=== PATIENT | male | born 1965 | race Caucasian/White ===

== ENCOUNTER 2019-04-09 08:37 | Emergency (ER) | payer OTHER ==
--- OUTSIDE RECORDS SUMMARY | 2019-04-09 08:43 | XMS REPORT | Continuity of Care Document ---
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 [phone] Medicine Problems Active Problems Provider Date Lumbosacral spondylosis without myelopathy Sena Soria MD Onset: Social History Type Date Description Comments Sex Unknown ETOH Use Occasionally consumes alcohol Tobacco Use Start: Unknown Patient has never smoked Recreational Drug Use Denies Drug Use Smoking Status Reviewed: 11/27/17 Patient has never smoked Exercise Type/Frequency Does not exercise Allergies, Adverse Reactions, Alerts Description No Known Drug Allergies Medications Description No Active Medications Immunizations Description No Information Available Vital Signs Date Vital Result Comment 11/27/2017 12:49pm Height 71 inches 5'11" Weight 240.00 lb BP Systolic Sitting 110 mmHg BP Diastolic Sitting 70 mmHg Pain Level 2 BMI (Body Mass Index) 33.5 kg/m2 09/29/2017 9:09am Height 71 inches 5'11" Weight 240.00 lb Heart Rate 62 /min BP Systolic Sitting 132 mmHg BP Diastolic Sitting 80 mmHg Pain Level 1 BMI (Body Mass Index) 33.5 kg/m2 Results Description No Information Available Procedures Description No Information Available Medical Devices Description No Information Available Encounters Description No Information Available Assessments Description No Information Available Plan of Treatment Future Appointment(s):03/12/2019 9:00 am - [place] [facility] at [facility]03/12/2019 9:30 am - Shan Irizarry M.D. at [facility]11/27/2017 - Sena Soria, MDM47.26 Other spondylosis with radiculopathy, lumbar regionFollow up:RV prnM51.16 Intervertebral disc disorders w radiculopathy, lumbar region Functional Status Description No Information Available Mental Status Description No Information Available Referrals Description No Information Available
--- OUTSIDE RECORDS SUMMARY | 2019-04-09 08:43 | XMS REPORT | Continuity of Care Document ---
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 Suprep Bowel Prep Kit as directed 1units Argentina 03/22/2019 MD Perez 17.5-3.13-1.6GM/177ML Solution Levothyroxine Sodium 1 by mouth every 90tabs Unknown 05/09/2018 day 100mcg Tablets Immunizations Description No Information Available Vital Signs Date Vital Result Comment 03/22/2019 2:19pm Height 71 inches 5'11" Weight 253.00 lb BP Systolic 133 mmHg BP Diastolic 80 mmHg Heart Rate 75 /min BMI (Body Mass Index) 35.3 kg/m2 Results Test Date Facility Test Result H/L Range Note Lab Results 03/04/2019 N2N/CCD Import TSH 2.00 mIU/L 0.50-6.00 PSA 0.7 ng/mL 0.0-4.0 Procedures Description No Information Available Medical Devices Description No Information Available Encounters Description No Information Available Assessments Date Code Description Provider 03/22/2019 K21.9 Gastro-esophageal reflux disease without Argentina Santos MD esophagitis 03/22/2019 R14.2 Eructation Argentina Todd MD 03/22/2019 R14.0 Abdominal distension (gaseous) Argentina Todd MD 03/22/2019 R19.7 Diarrhea, unspecified Argentina Todd MD 03/22/2019 Z12.11 Encounter for screening for malignant Argentina Todd MD neoplasm of colon Plan of Treatment Future Appointment(s):05/09/2019 11:15 am - Argentina Todd MD at [facility]03/22/2019 - Argentina Todd MDK21.9 Gastro-esophageal reflux disease without zebocwdyppvZ51.2 DvohclmrxaS28.0 Abdominal distension ( gaseous)R19.7 Diarrhea, ydmlyrrnzdpV41.11 Encounter for screening for malignant neoplasm of colon Functional Status Description No Information Available Mental Status Description No Information Available Referrals Description No Information Available
--- NOTE | 2019-04-09 09:49 | UC ---
Shoulder Pain HPI - HPI Summary HPI Summary: 53 yo male s/p fall at work yesterday injuring left shoulder immediate pain and inability to abd arm he is right handed took aleve no pain at rest severe pain with attempts to abduct - History of Current Complaint Chief Complaint: UCUpperExtremity Stated Complaint: SHOULDER INJURY Time Seen by Provider: 04/09/19 09:44 Hx Obtained From: Patient Onset/Duration: Sudden Onset, Lasting Hours Timing: Constant Severity Initially: Severe Severity Currently: None - at rest Pain Intensity: 10 - with movement Pain Scale Used: 0-10 Numeric Character: Sharp Aggravating Factor(s): Movement, External Rotation, Abduction Alleviating Factor(s): Rest Associated Signs And Symptoms: Positive: Negative Related History: Occupational Injury, Dominant Hand Right Torso: 1 - pain here - Allergies/Home Medications Allergies/Adverse Reactions: Allergies Allergy/AdvReac Type Severity Reaction Status Date / Time No Known Allergies Allergy Verified 04/09/19 08:49 Home Medications: Home Medications Levothyroxine TAB* [Synthroid 100 MCG TAB*] 1 tab PO DAILY 04/09/19 [History Confirmed 04/09/19] Omeprazole 1 cap PO DAILY 04/09/19 [History Confirmed 04/09/19] PMH/Surg Hx/FS Hx/Imm Hx Previously Healthy: Yes - Surgical History Surgical History: Yes Surgery Procedure, Year, and Place: carpal tunnel release right wrist - Family History Known Family History: Positive: Cardiac Disease, Hypertension - Social History Alcohol Use: Daily Alcohol Amount: 1 beer Substance Use Type: None Smoking Status (MU): Never Smoked Tobacco Review of Systems All Other Systems Reviewed And Are Negative: Yes Constitutional: Positive: Negative Skin: Positive: Negative Eyes: Positive: Negative ENT: Positive: Negative Respiratory: Positive: Negative Cardiovascular: Positive: Negative Gastrointestinal: Positive: Negative Genitourinary: Positive: Negative Motor: Positive: Negative Neurovascular: Positive: Negative Musculoskeletal: Positive: Arthralgia - left shoulder Neurological: Positive: Negative Psychological: Positive: Negative Physical Exam Triage Information Reviewed: Yes Appearance: Well-Appearing, No Pain Distress, Well-Nourished Vital Signs: Initial Vital Signs Temp 97.7 F 04/09/19 08:42 Pulse 58 04/09/19 08:42 Resp 18 04/09/19 08:42 BP 159/131 04/09/19 08:42 Pulse Ox 100 04/09/19 08:42 Vital Signs Reviewed: Yes Eyes: Positive: Conjunctiva Clear ENT: Positive: Hearing grossly normal. Negative: Nasal congestion, Nasal drainage, Trismus, Muffled voice, Hoarse voice Dental Exam: Normal Neck: Positive: Supple, Nontender Respiratory: Positive: Lungs clear, Normal breath sounds, No respiratory distress, No accessory muscle use Cardiovascular: Positive: RRR Musculoskeletal: Positive: ROM Limited @ - left shoulder - unable to abduct, pain with ext rotation, n/v intact Neurological: Positive: Alert Psychological Exam: Normal Skin Exam: Normal Procedures - Sedation Patient Received Moderate/Deep Sedation with Procedure: No Diagnostics - Radiology No standard instances Radiology Interpretation Completed By: Radiologist Summary of Radiographic Findings: no fx/mild DJD Shoulder Course/Dx - Differential Dx/Diagnosis Provider Diagnosis: Torn rotator cuff, Injury of left shoulder, Elevated BP without diagnosis of hypertension Discharge ED - Sign-Out/Discharge Documenting (check all that apply): Patient Departure All imaging exams completed and their final reports reviewed: Yes - Discharge Plan Condition: Stable Disposition: HOME Patient Education Materials: Rotator Cuff Injury (ED), How to Use a Sling (ED) Forms: *Work Release Referrals: Matt Dolan MD [Medical Doctor] - As Soon As Possible Additional Instructions: sling ice aleve I suspect a rotator cuff tear BP recheck with your MD in 1-2 mos - Billing Disposition and Condition Condition: STABLE Disposition: Home
[2019-04-09 09:53] VITALS: BP 142/93
== END 2019-04-09 10:38 | disposition home or self-care (01) ==
LOC: UCEAST 08:37
DX: S43.422A Sprain of left rotator cuff capsule, initial encounter (principal); W19.XXXA Unspecified fall, initial encounter; Y92.89 Other specified places as the place of occurrence of the external cause; R03.0 Elevated blood-pressure reading, without diagnosis of hypertension
CPT/HCPCS: 99212; G0463

== ENCOUNTER 2019-07-31 09:44 | Day surgery (SDC) | payer OTHER ==
[~2019-07-31 09:44] MED LIST: Atracurium* 10 MG/ML 10 ML VIAL ONE; Buffered Lidocaine 1% SYRIN* 1 ML/SYRINGE INTRADERM ONE; Dexamethasone IV* 4 MG/ML 1 ML (4 MG) IV SLOW PU ONE; Lactated Ringers 1000 ML Bag* 1,000 ML IV SCH; Lidocaine 2% PF * 5 ML VIAL ONE; Midazolam* 1 MG/ML 5 ML VIAL (5 MG) ONE; Ondansetron INJ* 2 MG/ML VIAL ONE; Propofol* 10 MG/ML 20 ML BTL ONE; fentaNYL* 50 MCG/ML 2 ML VIAL (100 MCG VIAL) ONE
[2019-07-31] MEDS ORDERED: ceFAZolin 2 GM PREMIX in ORs 2 GM/50 ML BAG ONE (09:58)
[2019-07-31] MEDS ORDERED: Dexamethasone IV* 4 MG/ML 1 ML (4 MG) ONE (09:58)
[2019-07-31] MEDS ORDERED: ROPIVACAINE 5 MG/ML 30 ML BTL (0.5%) ONE (11:13)
[2019-07-31] MEDS ORDERED: EPINEPHRINE 1 MG/ML 1 ML VIAL ONE (11:29)
[2019-07-31] MEDS ORDERED: Bupivacaine 0.5%* 50 ML MDV VIAL ONE (11:29)
[2019-07-31] MEDS ORDERED: fentaNYL* 50 MCG/ML 2 ML VIAL (100 MCG VIAL) ONE ×2 (11:40→14:04)
[2019-07-31] MEDS ORDERED: Glycopyrrolate IV* 0.2 MG/ML 1 ML VIAL ONE (12:12)
[2019-07-31] MEDS ORDERED: oxyCODONE/Acetamin 5/325 MG* TAB PO PRN (12:13)
[2019-07-31] MEDS ORDERED: HYDROmorphone INJ1* 1 MG/ML SYRINGE IV PRN (12:13)
[2019-07-31] MEDS ORDERED: fentaNYL* 50 MCG/ML 2 ML VIAL (100 MCG VIAL) IV PRN (12:13)
[2019-07-31] MEDS ORDERED: Naloxone* 0.4 MG/ML 1 ML VIAL IV PRN (12:13)
[2019-07-31] MEDS ORDERED: Scopolamine 1.5 mg* PATCH TRANSDERM PRN (12:13)
[2019-07-31] MEDS ORDERED: DiMENhydriNATE IV* 50 MG/ML VIAL IV PUSH PRN (12:13)
[2019-07-31] MEDS ORDERED: Ondansetron INJ* 2 MG/ML VIAL IV PRN (12:13)
[2019-07-31 16:37] VITALS: BP 133/89
--- NOTE | 2019-08-02 04:18 | OP ---
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 A physician periodontal assistant was required for the length of the procedure for assistance with patient positioning, retraction, instrumentation, and closure. ANESTHESIOLOGIST: Dr. Izquierdo. ANESTHESIA: General anesthesia, regional interscalene block anesthesia. PRE-OP DIAGNOSES: 1. Left shoulder rotator cuff tendon tear, massive, retracted, supraspinatus, infraspinatus, superior subscapularis. 2. Left shoulder subacromial impingement and bursitis. 3. Left shoulder acromioclavicular joint osteoarthritis. 4. Possible left shoulder proximal biceps tendinosis. POST-OP DIAGNOSES: 1. Left shoulder rotator cuff tendon tear, massive, retracted, supraspinatus as well as anterior infraspinatus. 2. Left shoulder subacromial impingement and bursitis. 3. Left shoulder acromioclavicular joint osteoarthritis. 4. Left shoulder proximal biceps tendinosis. OPERATIVE PROCEDURE: 1. Left shoulder arthroscopic rotator cuff tendon repair, supraspinatus, anterior infraspinatus, using a 5-anchor double-row construct. 2. Modifier 22 for complex procedure, just given the amount of retraction of the tendon and its initial immobility along with the 5-anchor double-row large repair construct. 3. Left shoulder arthroscopic subacromial decompression. 4. Left shoulder arthroscopic limited debridement including release of proximal biceps long head tendon. ANTIBIOTICS: Ancef 2 g IV. IV FLUIDS: See anesthesia note. UIUI-IT-APNR TIME: 132 minutes. SPECIMEN: None. IMPLANTS: Arthrex Corkscrew anchors 5.5 mm, double-loaded with SutureTape x2. Arthrex Corkscrew double-loaded SutureTape anchor 4.75 mm x1. Two Arthrex SwiveLock anchors 4.75 mm. One suture additional used from the most anterior of those two SwiveLock suture anchors. COMPLICATIONS: None. ESTIMATED BLOOD LOSS: Minimal. INDICATIONS FOR PROCEDURE: The patient is a 53-year-old fifi who admitted to some chronic shoulder pain bilaterally, left worse than right, who then sustained a fall on 04/08/19 almost 4 months preoperatively with a significant increase in that pain. Given the significant amount of retraction and atrophy of the supraspinatus and infraspinatus tendons visible on MRI, I told the patient at his first visit with me post MRI that it was not clear that the patient's tendon would be repairable. We therefore trialed cortisone and physical therapy, but the patient was still very symptomatic. The patient opted for surgery. I assigned the patient up for arthroscopic rotator cuff tendon repair versus superior capsular repair versus partial rotator cuff tendon repair. I described evaluating and treating biceps, also doing subacromial decompression, and possibly distal clavicle resection. We discussed treatment options for the biceps and the patient was comfortable with either biceps release or open biceps tenodesis or arthroscopic biceps tenodesis. He left that decision to me. I have discussed risks and potential complications of surgery. These certainly include retear postoperatively. DESCRIPTION OF PROCEDURE: In preoperative holding, the patient signed written consent. Operative extremity was marked in preoperative holding. The patient had an interscalene regional nerve block done by Anesthesia. The patient was taken back to the operating room, placed supine on operating room table. Sedated and intubated. Lateral decubitus. Thomas bag hardened. Axillary roll. All bony prominences padded. Longitudinal traction of the left shoulder. Appropriate forward flexion and abduction, 15 pounds. Left shoulder was prepped and draped. Surgical time-out performed. A spinal needle entered into the glenohumeral joint from posterior. Normal saline 30 cc. A posterior glenohumeral joint portal was established. I started diagnostic arthroscopy. No significant degenerative changes, articular cartilage, beyond grade 1. Some fraying of the labrum. Incredibly frayed and partially torn long head biceps tendon. I started in anterior glenohumeral joint portal under direct visualization. I debrided some rotator cuff interval tissue. I released the biceps tendon near its origin. I evaluated the subscapularis. No significant tear of the subscapularis was presented. I put the humeral head into a variety of positions, posterior translation, internal and external rotation. There was clearly a large supraspinatus and infraspinatus rotator cuff tendon tear. I moved to the subacromial space with anterior and posterior portals. I soon established lateral and posterolateral portals. I noted that the supraspinatus and some superior infraspinatus were retracted to the level of the glenoid. I initially grasped this with a rotator cuff grasper and traction stitches and noted that the mobility was reasonable with tension. I performed debridement superior and inferior to the rotator cuff tendons to improve mobility. I used arthroscopic shaver inferiorly along with switching stick both superior and inferiorly. I held off on performing slides. The attached inferior infraspinatus did appear caro. The supraspinatus had a layer of synovium or bursa superior to it that I debrided. This initially had looked like a superior leaflet of rotator cuff, but was definitely not. The patient's supraspinatus was not of great quality certainly compared to the intact rotator cuff in this patient. However, it held my traction stitches. It did not pull through, which was impressive. The traction stitches could bring tendon to bone. I considered now either a rotator cuff tendon repair or a superior capsular repair. AGiven the vigorous nature of this patient's work, I did not trust the superior capsular repair and knew that if this was placed, the patient's only salvage surgery would be a reverse shoulder replacement. Therefore, I thought that it would be worth trying to repair this patient's rotator cuff. I started out placing my first anchor, still unsure if I would quit the repair and move to the superior capsular repair. I prepared the humeral head footprint with some debridement. I benny a superolateral poke hole, placed my medial row anchors first anterior. I used an antegrade suture passer to pass one of my set of sutures from that anterior medial row anchor. I placed these into a cuff and noted that the cuff would be reducible to bone. At this point, I decided that indeed I would move forward with the rotator cuff repair as I thought it would feasible. My second anchor was placed at the posterior end of the medial row. I wanted to advance superiorly the intact inferior infraspinatus. I used retrograde and antegrade suture passers to pass 2 nice horizontal mattress stitches into the intact infraspinatus. I thereby superiorized this tendon as well as increased tension in it. This helped to cover additional bare rotator cuff tendon footprint on the humeral head. I next placed a central medial row anchor. One of the stitches placed from this anchor with a simple stitch catching a part of the intact infraspinatus that I had superiorized as well as part of the torn supraspinatus and superior infraspinatus. That simple stitch brought back corner of tendon nicely across to bone. I next passed the remaining sutures from the more anterior and the central medial row anchors using an antegrade suture passer into the retracted supraspinatus. I tied this as I went with many of these stitches. After performing all of my stitches with the medial row, the tendon was brought down to bone. There was not a large cuff of tissue lateral to these stitches, but there was some tendon. All stitches had appeared to appose tendon nicely to bone, although these were overall smaller area. Repair appeared stable to probing and movement of the humerus. Given the size of this tear and the tension it was under, certainly a lateral row was required. I placed two lateral row anchors, one more anteriorly and the other posteriorly, each with 3 SutureTapes from the medial row. The rotator cuff repair appeared stable to probing and movement. There was not quite an anterior dog ear, but a little bit of additional tissue all the way anterior. I grabbed this with a simple stitch with the more anterior of the two lateral row anchors. I added the Modifier 22 to this procedure just due to the sophistication of the rotator cuff repair and the thought involved of constantly assessing the tension of the rotator cuff moving in a variety of directions and the complexity of the repair order as such and such as well as the debridement before the repair. Given this patient's massive rotator cuff tear and the potential for suture retear, I decided to hold off on releasing the coracoacromial ligament so as not to put him at risk of the anterior or superior escape. Instead, I just did a little bit of light debridement on the undersurface of the acromion to flatten it out as well as to perhaps provide some bone marrow that might provide a better biologic environment for healing. I held off on distal clavicle resection. AC joint pain was not a primary complaint and it seemed extraneous. Skin incisions were closed with [id number] and 12 stitches using nylon 3-0 suture. Xeroform, 4x4's, ABDs, foam tape. A sling with abduction pillow. The patient was awakened, extubated, and transferred to the PACU. DISPOSITION: Discharged home with Percocet for pain control. Sling and abduction pillow at all times. Wound care instructions provided. Follow up with me in 10 to 14 days postoperatively. [id number]/[facility] #: [id number] [facility]
== END 2019-07-31 16:44 | disposition home or self-care (01) ==
LOC: OR 09:44
PROVIDERS: ATTEND Orthopaedic Surgery
DX: S46.012A Strain of muscle(s) and tendon(s) of the rotator cuff of left shoulder, initial encounter (principal); M75.42 Impingement syndrome of left shoulder; M75.52 Bursitis of left shoulder; M19.012 Primary osteoarthritis, left shoulder; M75.22 Bicipital tendinitis, left shoulder; G89.18 Other acute postprocedural pain; K21.9 Gastro-esophageal reflux disease without esophagitis; E03.9 Hypothyroidism, unspecified; W19.XXXA Unspecified fall, initial encounter; Y92.9 Unspecified place or not applicable
CPT/HCPCS: C1713; J0690; J1100; J2250; J2405; J2704; J2795; J3010; J3490